=== PATIENT | male | born 1965 | race African-American/Black ===

== ENCOUNTER 2019-12-23 10:32 | Emergency (ER) | payer OTHER ==
[~2019-12-23] VITALS: Ht 182.9 cm; Wt 86.2 kg
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
--- NOTE | 2019-12-23 10:48 | NUR ---
ED Nurse Note: [employer] @ bedside
[2019-12-23 10:49] VITALS: BP 143/84
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
[2019-12-23] MEDS ORDERED: IBUPROFEN600 M1 ORAL (10:59)
--- NOTE | 2019-12-23 12:04 | NUR ---
ED Nurse Note: xray @ bedside
--- NOTE | 2019-12-23 12:34 | NUR ---
ED Nurse Note: ANKLE wrapped per MD order
[2019-12-23 12:38] VITALS: BP 137/77
--- NOTE | 2019-12-23 12:38 | NUR ---
ED Nurse Note: Pt cleared by health care Provider for discharge. DC instructions/prescription was given and explained to pt and verbalized understanding of teachings. All medical deviecs such as ID band removed. Pt is AAO x4, ambulatory and left with all personal belongings.
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
== END 2019-12-23 12:38 | disposition home or self-care (01) ==
LOC: EDBD 10:32 → EMR 11:20
DX: S90.02XA Contusion of left ankle, initial encounter (principal); S80.02XA Contusion of left knee, initial encounter; V43.52XA Car driver injured in collision with other type car in traffic accident, initial encounter; Y92.410 Unspecified street and highway as the place of occurrence of the external cause; F31.9 Bipolar disorder, unspecified
CPT/HCPCS: 99284